=== PATIENT | male | born 1990 | race Caucasian/White ===

== ENCOUNTER 2016-10-25 00:58 | Emergency (ER) | payer OTHER ==
[~2016-10-25] VITALS: Ht 182.9 cm; Wt 90.9 kg
[2016-10-25 00:59] VITALS: BP 122/81; TEMP 98.9
[2016-10-25] MEDS ORDERED: LIDOCAINE PATCH (01:04)
[2016-10-25] MEDS ORDERED: FLEXERIL5 MG PO (01:04)
[2016-10-25] MEDS ORDERED: LIDODERM 5% PATC1 EA TP (01:17)
[2016-10-25 02:01] VITALS: PULSE 64
== END 2016-10-25 02:04 | disposition home or self-care (01) ==
LOC: COL.ER 00:58
DX: L50.9 Urticaria, unspecified (principal)
CPT/HCPCS: J1100